=== PATIENT | male | born 1990 | race Caucasian/White ===

== ENCOUNTER 2016-09-25 20:03 | Emergency (ER) | payer OTHER ==
[2016-09-25 20:54] LABS: Bilirubin Negative (Negative); Blood, Urine Negative (Negative); Glucose, Urine (Dipstick) >=1000 mg/dL (Negative); Ketone, Urine Negative (Negative); Nitrite Negative (Negative); Protein, Urine (Dipstick) Negative (Neg-Trace); Urobilinogen 0.2 mg/dL (0.2-1.0)
[2016-09-25 21:03] LABS: #Basophils 0.2 thou/uL (0.0-0.2); #Eosinphils 0.2 thou/uL (0.0-0.7); #Lymphocytes 3.5 thou/uL (1.20-3.40); #Monocytes 0.8 thou/uL (0.11-0.59); #Neutrophils 6.2 thou/uL (1.40-6.50); %Basophils 1.6 % (0.0-1.0); %Eosinophils 1.9 % (0.0-10.0); Hematocrit 46.2 % (42.0-52.0); Mean Platelet Volume 9.1 fL (7.4-10.4); Red Blood Cell (RBC) Count 5.28 mill/uL (4.70-6.10); White Blood Cell (WBC) Count 10.8 thou/uL (4.8-10.8)
[2016-09-25 21:11] LABS: ALT (SGPT) 47 U/L (0-55); AST (SGOT) 23 U/L (5-34); Alkaline Phosphatase 79 U/L (40-150); Anion Gap 28 mmol/L (10-20); BUN (Urea Nitrogen) 16 mg/dL (8.9-20.6); Bilirubin, Total 0.5 mg/dL (0.2-1.2); Calc. Creatinine Clearance 0 mL/min (70-130); Calcium 9.7 mg/dL (7.8-10.44); Carbon Dioxide 10 mmol/L (22-29); Chloride 98 mmol/L (98-107); Estimated GFR-MDRD 84; Globulin 4.5 g/dL (2.4-3.5); Magnesium 2.7 mg/dL (1.6-2.6); Protein, Total 9.1 g/dL (6.0-8.3)
[2016-09-25 21:12] LABS: Base Excess 1.8 mEq/L (-2 - +2)
--- NOTE | 2016-09-25 23:59 | PICIS ---
[facility] EMERGENCY RECORD TRIAGE (20:10 SDIS) TRIAGE NOTES: PT C/O HIGH BLOOD SUGAR, "DRY MOUTH, UPSET STOMACH." LAST READING 318 AT HOME. DM2. (20:10 SDIS) PATIENT: NAME: Haim Boyle, AGE: 26, GENDER: male, : Sat1990, TIME OF GREET: SatSep 25, 2016 20:03, PREFERRED LANGUAGE: Sinhala, ETHNICITY: Not or , ECODE BILLING MAP: [facility], SSN: [id number], Zip Code: [address], KG WEIGHT: [phone] (est.), PHONE: , , , PERSON ID: [id number], PCP: DO AVERY KRISTEL. (20:10 SDIS) COMPLAINT: HYPERGLYCEMIA. (20:10 SDIS) ADMISSION: URGENCY: 3 Urgent, ADMISSION SOURCE: Home, TRANSPORT: Walk-in, BED: TRIAGE. (20:10 SDIS) SIRS SCORING: Heart Rate 55-109 (0), Temp range 96.8-101.1 (0), respiratory rate 12-24 (0), Mental Status altered: no (0). (20:12 SDIS) TRIAGE SCREENING: Patient denies suicidal ideation, Patient denies presence of domestic violence. (20:12 SDIS) TREATMENTS IN PROGRESS: Treatments given Prehospital: NONE. (20:12 SDIS) PROVIDERS: TRIAGE NURSE: Madyson Hadley RN. (20:10 SDIS) VITAL SIGNS: Resp 18, (Non-Labored), Time 09/25/2016 20:09. (20:09 SDIS) PREVIOUS VISIT ALLERGIES: No Known Drug Allergies. (20:10 SDIS) No Known Drug Allergies. (20:12 SDIS) KNOWN ALLERGIES No Known Drug Allergies CURRENT MEDICATIONS (20:49 SDIS) metFORMIN: TABLET : Strength - 500 mg : ORAL Patient Dose: 1 tab(s) Oral 2 times a day. traZODone: TABLET : Strength - 150 mg : ORAL Patient Dose: 1 tab(s) Oral once a day (at bedtime). VITAL SIGNS VITAL SIGNS: Resp: 18 (Non-Labored), Time: 09/25/2016 20:09. (20:09 SDIS) BP: 143/89, Pulse: 100, Temp: 97.8 (Oral), Pain: 4, O2 sat: 97 on Room Air, Time: 09/25/2016 20:11. (20:11 SDIS) BP: 120/77, Pulse: 87, Resp: 20, O2 sat: 98 on Room Air, Time: 09/25/2016 22:15. (22:15 SDIS) BP: 109/74, Pulse: 87, Resp: 18, O2 sat: 97 on Room Air, Time: 09/25/2016 21:30. (21:30 SDIS) BP: 121/79, Pulse: 80, Resp: 18, Temp: 97.5, Pain: 4, O2 sat: 97 on RA, Time: 09/25/2016 23:49. (23:49 SDIS) NURSING PROCEDURE: BEDSIDE TESTING &a-1R&a+25V*p+0X*n8199Z*c202B*c15G*c2P*p-0X&a-25V&a+1R Name: Haim Boyle : 1990 M26 MedRec: [id number] AcctNum: [id number] Prepared: Maged Sep 25, 2016 23:56 by Interface Page 1 of 11 [facility] EMERGENCY RECORD PATIENT IDENTIFIER: Patient actively involved in identification process, Patient's identity verified by patient stating name, Patient's identity verified by patient stating date, Patient's identity verified by hospital ID bracelet. (20:41 SDIS) Patient actively involved in identification process, Patient's identity verified by patient stating name. (22:01 SDIS) Patient actively involved in identification process, Patient's identity verified by patient stating name, Patient's identity verified by patient stating date, Patient's identity verified by hospital ID bracelet. (23:25 SDIS) GLUCOSE: Glucose testing indicated for diabetic patient, Glucose testing indicated for hyperglycemia, Venous blood sample, Result (mg/dl) 361. (20:41 SDIS) Glucose testing indicated for diabetic patient, Glucose testing indicated for hyperglycemia, Capillary blood sample, Result (mg/dl) 309. (22:01 SDIS) Glucose testing indicated for diabetic patient, Glucose testing indicated for hyperglycemia, Capillary blood sample, Result (mg/dl) 208. (23:25 SDIS) FOLLOW-UP: After procedure, results given to Dr. tellez. (20:41 SDIS) After procedure, results given to Dr. TELLEZ. (22:01 SDIS) After procedure, results given to Dr. TELLEZ. (23:25 SDIS) NURSING PROCEDURE: DISCHARGE NOTE (23:49 SDIS) DISCHARGE: Patient discharged to home, ambulating without assistance, family driving, accompanied by //partner, Summary of Care printed/ provided, Transition record given to patient, Discharge instructions given to patient, Simple or moderate discharge teaching performed, Prescriptions given and instructions on side effects given, Above person(s) verbalized understanding of discharge instructions and follow-up care, Patient treated and evaluated by physician. BELONGINGS: Belongings and valuables with patient at time of discharge include:, Belongings remain with patient, Valuables remain with patient. VITAL SIGNS: BP: 121, / 79, Pulse: 80, Resp: 18, Temp: 97.5, Pain: 4, O2 sat: 97, on: RA. NURSING PROCEDURE: IV (20:40 SDIS) PATIENT IDENITIFIER: Patient actively involved in identification process, Patient's identity verified by patient stating name, Patient's identity verified by patient stating date, Patient's identity verified by hospital ID bracelet. IV SITE 1: IV therapy indicated for hydration, IV therapy indicated for medication administration, IV established, to the right antecubital, using an 18 gauge catheter, in one attempt, IV site prepped with chloraprep, Saline lock established, Flushed with normal saline (mls): 10, Labs drawn at time of placement, labeled in the presence of the patient and sent to lab. &a-1R&a+25V*p+0X*y4932T*c202B*c15G*c2P*p-0X&a-25V&a+1R Name: Haim Boyle Casa : 1990 M26 MedRec: [id number] AcctNum: [id number] Prepared: SatSep 25, 2016 23:56 by Interface Page 2 of 11 pMD [facility] EMERGENCY RECORD NURSING PROCEDURE: URINE COLLECTION (20:42 SDIS) PATIENT IDENTIFIER: Patient actively involved in identification process, Patient's identity verified by patient stating name, Patient's identity verified by patient stating date, Patient's identity verified by hospital ID bracelet. URINE COLLECTION MALE: Urine collected by void, output amount (mL) 50, urine orange in color, and clear, Specimen labeled in the presence of the patient and sent to lab, Specimen obtained for culture labeled in the presence of the patient and sent to lab. ORDER DETAILS Order Name: Beta-Hydroxybutyrate (Ketone), Status: Active, Time: 22:15 09/25/2016, User: KEKE, - Ordered for: DO Tellez Joseph, - Entered by: DO Tellez Joseph - SatSep 25, 2016 22:15, - Quantity: 1, Order Name: BLOOD GLUCOSE MONITOR, Status: Done, Time: 22:01 09/25/2016, User: LIZA, - Ordered for: DO Tellez Joseph, - Entered by: DO Tellez Joseph - SatSep 25, 2016 21:36, - Quantity: 1, Order Name: CBC with Differential, Status: Active, Time: 20:15 09/25/2016, User: KEKE, - Ordered for: DO Tellez Joseph, - Entered by: DO Tellez Joseph - SatSep 25, 2016 20:15, - Quantity: 1, Order Name: Comprehensive Metabolic Panel, Status: Active, Time: 20:15 09/25/2016, User: KEKE, - Ordered for: DO Tellez Joseph, - Entered by: DO Tellez Joseph - SatSep 25, 2016 20:15, - Quantity: 1, Order Name: ERRT Pulse Oximeter ER, Status: Active, Time: 20:15 09/25/2016, User: KEKE, - Ordered for: DO Tellez Joseph, - Entered by: DO Tellez Joseph - SatSep 25, 2016 20:15, - Quantity: 1, Order Name: Influenza A&B Ag Screen, Status: Active, Time: 20:58 09/25/2016, User: KEKE, - Ordered for: DO Tellez Joseph, - Entered by: DO Tellez Joseph - SatSep 25, 2016 20:58, - Quantity: 1, Order Name: Magnesium, Status: Active, Time: 20:15 09/25/2016, User: KEKE, - Ordered for: DO Tellez Joseph, - Entered by: DO Tellez Joseph - estela Sep 25, 2016 20:15, - Quantity: 1, Order Name: SALINE LOCK, Status: Done, Time: 20:43 09/25/2016, User: LIZA, &a-1R&a+25V*p+0X*o9935Z*c202B*c15G*c2P*p-0X&a-25V&a+1R Name: Haim Boyle : 1990 M26 MedRec: [id number] AcctNum: [id number] Prepared: SatSep 25, 2016 23:56 by Interface Page 3 of 11 D [facility] EMERGENCY RECORD - Ordered for: DO Tellez Joseph, - Entered by: DO Tellez Joseph - estela Sep 25, 2016 20:15, - Quantity: 1, Order Name: Urinalysis w/ Rflx Microscopic, Status: Active, Time: 20:15 09/25/2016, User: KEKE, - Ordered for: DO Tellez Joseph, - Entered by: DO Tellez Joseph - estela Sep 25, 2016 20:15, - Quantity: 1, Order Name: VBG (For BUR,MAD, and FANY), Status: Active, Time: 20:23 09/25/2016, User: KEKE, - Ordered for: DO Tellez Joseph, - Entered by: DO Tellez Joseph - SatSep 25, 2016 20:23, - Quantity: 1. MEDICATION ADMINISTRATION SUMMARY Drug Name: HumuLIN R, Dose Ordered: 10 units, Route: IV Push, Status: Given, Time: 22:20 09/25/2016, Drug Name: Normal Saline, Dose Ordered: 1000 mL/hr, Route: IV Fluid Infusion, Status: Given, Time: 21:45 09/25/2016, Drug Name: Normal Saline, Dose Ordered: 1000 mL/hr, Route: IV Fluid Infusion, Status: Given, Time: 20:44 09/25/2016, Detailed record available in Medication Service section. MEDICATION SERVICE HumuLIN R: Order: HumuLIN R (insulin regular, human) - Dose: 10 units : IV Push Schedule: Now Ordered by: Jaycob Tellez DO Entered by: Jaycob Tellez DO SatSep 25, 2016 22:13 , Acknowledged by: Madyson Hadley RN SatSep 25, 2016 22:20 Documented as given by: Ira Fowler RN SatSep 25, 2016 22:20 Patient, Medication, Dose, Route and Time verified prior to administration. Verbal order read back and verified, Amount given: 10UNITS, IV SITE #1 IVP, initial medication, Catheter placement confirmed via flush prior to administration, IV site without signs or symptoms of infiltration during medication administration, No swelling during administration, No drainage during administration, IV flushed after administration, Correct patient, time, route, dose and medication confirmed prior to administration, Patient advised of actions and side-effects prior to administration, Allergies confirmed and medications reviewed prior to administration, Patient in position of comfort, Side rails up, Cart in lowest position, Family at bedside, Co-signed by: Madyson Hadley RN SatSep 25, 2016 22:26. Normal Saline: Order: Normal Saline (0.9 % sodium chloride) - Dose: 1000 mL/hr : IV Fluid Infusion Schedule: Bolus Ordered by: Jaycob Tellez DO &a-1R&a+25V*p+0X*l5242G*c202B*c15G*c2P*p-0X&a-25V&a+1R Name: Haim Boyle : 1990 M26 MedRec: [id number] AcctNum: [id number] Prepared: SatSep 25, 2016 23:56 by Interface Page 4 of 11 pMD [facility] EMERGENCY RECORD Entered by: Jaycob Tellez DO SatSep 25, 2016 20:24 , Acknowledged by: Madyson Hadley RN SatSep 25, 2016 20:31 Documented as given by: Madyson Hadley RN SatSep 25, 2016 20:44 Patient, Medication, Dose, Route and Time verified prior to administration. IV SITE #1 IV fluids established for hydration, IV SITE #1 into right antecubital, IV SITE #1 1st bag hung, amount 1 Liter hung, IV SITE #1 bolus of 1000 ml established, IV SITE #1 Rate of bolus, wide open, via primary tubing, Connections checked prior to administration, Line traced prior to administration, Catheter placement confirmed via flush prior to administration, IV site without signs or symptoms of infiltration during medication administration, No swelling during administration, No drainage during administration, IV flushed after administration, Correct patient, time, route, dose and medication confirmed prior to administration, Patient advised of actions and side-effects prior to administration, Allergies confirmed and medications reviewed prior to administration. : Follow Up : _IV SITE #1:_, IV fluid infusion discontinued, on SatSep 25, 2016 21:35, 55 minutes, ., Total amount infused: 1L. (21:35 SDIS) Normal Saline: Order: Normal Saline (0.9 % sodium chloride) - Dose: 1000 mL/hr : IV Fluid Infusion Schedule: Now Ordered by: Jaycob Tellez DO Entered by: Jaycob Tellez DO SatSep 25, 2016 21:24 , Acknowledged by: Madyson Hadley RN SatSep 25, 2016 21:30 Documented as given by: Madyson Hadley RN SatSep 25, 2016 21:45 Patient, Medication, Dose, Route and Time verified prior to administration. IV SITE #1 IV fluids established for hydration, IV SITE #1 into right antecubital, IV SITE #1 2nd bag hung, amount 1 Liter hung, IV SITE #1 bolus of 1000 ml established, IV SITE #1 Rate of bolus, wide open, via primary tubing, Connections checked prior to administration, Line traced prior to administration, Catheter placement confirmed via flush prior to administration, IV site without signs or symptoms of infiltration during medication administration, No swelling during administration, No drainage during administration, IV flushed after administration, Correct patient, time, route, dose and medication confirmed prior to administration, Patient advised of actions and side-effects prior to administration, Allergies confirmed and medications reviewed prior to administration. : Follow Up : No signs or symptoms of allergic reaction noted, _IV SITE #1:_, IV fluid infusion discontinued, on SatSep 25, 2016 22:49, Total fluid hydration time IV site 1 1 hour, 5 minutes, ., Total amount infused: 1L, IV Discontinued with catheter intact. (23:49 SDIS) HPI DIABETES (22:26 JPIP) CHIEF COMPLAINT: Patient presents for evaluation of hyperglycemia, Pre-hospital or triage blood sugar &a-1R&a+25V*p+0X*i4027D*c202B*c15G*c2P*p-0X&a-25V&a+1R Name: Haim Boyle : 1990 M26 MedRec: [id number] AcctNum: [id number] Prepared: SatSep 25, 2016 23:56 by Interface Page 5 of 11 pMD [facility] EMERGENCY RECORD 300-400. HISTORIAN: History provided by patient, History provided by patient's spouse. QUALITY: stomach upset and cramping. SEVERITY: Current severity of pain rated as 4/10. TIME COURSE: Sudden onset of symptoms, Date and time of onset was 2-3, days ago, There has been no change in the patient's symptoms over time, are constant. ASSOCIATED WITH: Associated with abdominal pain, Associated with decreased oral intake, Associated with diaphoresis, Associated with fever, subjective, Associated with illness, Associated with polydipsia, diarrhea. EXACERBATED BY: Patient's condition exacerbated by nothing. RELIEVED BY: Patient's condition relieved by nothing. ROS (22:28 JPIP) CONSTITUTIONAL: Historian reports chills, reports fatigue, reports fever. Subjective fever of felt feverish, Historian reports malaise. ENT: Historian denies dysphagia, denies rhinorrhea, denies sinus pain, denies sore throat. CARDIOVASCULAR: Historian denies chest pain. RESPIRATORY: Historian denies cough, denies shortness of breath. GI: Historian reports diarrhea, reports nausea, denies vomiting. SKIN: Historian denies rash, denies skin changes, denies skin lesions. NEUROLOGIC: Historian denies lethargy, denies mental status changes. ENDOCRINE: Historian reports polydipsia. NOTES: All systems reviewed, negative except as described above. PAST MEDICAL HISTORY MEDICAL HISTORY: Flu vaccine not up to date, Tetanus immunization up to date, Pneumococcal vaccine not up to date, Past medical history includes history of diabetes, Type II, Notes: new onset diabetes. (20:12 SDIS) MALE SURGICAL HISTORY: Patient has no surgical history. (20:12 SDIS) PSYCHIATRIC HISTORY: Notes: ADHD, Psychiatric history includes history of post-traumatic stress disorder, Notes: adhd. (20:12 SDIS) SOCIAL HISTORY: Patient drinks socially, rarely, Patient denies drug use, Patient currently uses tobacco, E-CIG, Patient denies alcohol use, Patient denies drug use, Patient currently uses tobacco, smokes cigarettes, Occasional or some day smoker, 1 cig a month. (20:12 SDIS) FAMILY HISTORY: Family history is non-contributory to this case. (20:12 SDIS) NOTES: Nursing records reviewed, Medication list reviewed. (22:31 &a-1R&a+25V*p+0X*c5548I*c202B*c15G*c2P*p-0X&a-25V&a+1R Name: Haim Boyle : 1990 M26 MedRec: [id number] AcctNum: [id number] Prepared: SatSep 25, 2016 23:56 by Interface Page 6 of 11 D [facility] EMERGENCY RECORD JPIP) PHYSICAL EXAM (22:30 JPIP) CONSTITUTIONAL: Vital Signs Reviewed, Patient afebrile, Pulse normal, Blood pressure normal bilaterally, Respiratory rate normal, Patient appears, uncomfortable, ill appearing, Patient alert and oriented to person, place and time, Nursing notes reviewed. HEAD: Head exam included findings of head atraumatic, normocephalic. EYES: Eye exam included findings of eyelids normal to inspection, Conjunctiva normal, Sclera normal, no periorbital ecchymosis, no periorbital edema, no periorbital erythema. ENT: Ear exam normal, Pharynx exam normal, not injected, no swelling, symmetrical, Uvula exam normal, midline, no edema, Mouth exam normal, mucous membranes moist. NECK: Neck exam included findings of normal range of motion, Trachea midline, no cervical adenopathy. RESPIRATORY CHEST: Respiratory exam included findings of no respiratory distress, Breath sounds clear, No wheezing, No rales, No rhonchi, Breath sounds not absent, Breath sounds not diminished. CARDIOVASCULAR: Cardiovascular exam included findings of heart rate regular rate and rhythm, Heart sounds normal, no murmurs, no rub. BACK: no costovertebral angle tenderness. UPPER EXTREMITY: Upper extremity exam included findings of inspection normal, Range of motion normal. NEURO: Randy coma scale 15, Neuro exam findings include patient oriented to person, place and time, no focal motor deficits. SKIN: Skin exam included findings of skin warm, and, diaphoretic, and normal in color. LYMPHATIC: Lymphatic exam included findings of cervical nodes normal, Submandibular normal. PSYCHIATRIC: Psychiatric exam included findings of patient oriented to person place and time, Normal affect. LAB INTERPRETATION (22:38 JPIP) INTERPRETATION: I reviewed the lab results, All labs normal except as noted below, CBC normal, Chemistry abnormal, Sodium decreased, Glucose elevated, Bicarbonate decreased, Magnesium elevated, Liver functions normal, Urinalysis abnormal, positive for glucose, Bedside glucose abnormal, elevated, VBG 7.420, CO241. EVENTS TRANSFER: Triage to Emergency Triage. (SatSep 25, 2016 20:10 SDIS) Emergency Triage to Emergency Room -02. (20:11 SDIS) Removed from Emergency Emergency Room -02. (23:50 SDIS) &a-1R&a+25V*p+0X*z4389O*c202B*c15G*c2P*p-0X&a-25V&a+1R Name: Haim Boyle : 1990 M26 MedRec: [id number] AcctNum: [id number] Prepared: SatSep 25, 2016 23:56 by Interface Page 7 of 11 pMD [facility] EMERGENCY RECORD O2SAT INTERPRETATION (22:26 JPIP) O2SAT: Continuous pulse oximetry, Oxygen saturation 98%, on room air, Oxygen saturation interpretation: Normal, No intervention required. DOCTOR NOTES (22:40 JPIP) RE-EVALUATION: Routine re-evaluation, after administration of IV fluids, The patient's condition has improved, states he is feeling better. TEXT: discussed findings and treatment plan with patient precautions given. PROBLEM LIST No recorded problems DIAGNOSIS (23:33 JPIP) FINAL: PRIMARY: viral syndrome, ADDITIONAL: diarrhea, nonketotic hyperglycemia. DISPOSITION PATIENT: Disposition Type: Discharge, Disposition: *Discharge Home, Condition: Good. (23:33 JPIP) Patient left the department. (23:50 SDIS) INSTRUCTION (23:33 JPIP) DISCHARGE: DIARRHEA VOMIT VIRAL 4YADULT, HYPERGLYCEMIA DIABETIC. FOLLOWUP: DO AVERY KRISTEL, [facility], [address] [place] [id number], [id number]. SPECIAL: follow your diabetic diet. Call your Primary Care Physician in the morning for a follow up appointment Follow up with Primary Care Physician within 72 hours Return to the Emergency Department for increased symptoms problems or concerns. PRESCRIPTION (23:32 JPIP) Levsin/SL: TABLET, SUBLINGUAL : 0.125 mg : SUBLINGUAL : Quantity: 1 Unit: tab(s) Route: SUBLINGUAL Schedule: every 4 hours prn Dispense: 30 May substitute. Refills: No Refills . NOTES: For abdominal pain, cramps or diarrhea No refills. RESULTS LABORATORY: Accuchek Collection DT: SatSep 25, 2016 20:49, *Accuchek 361 - H mg/dL, Range (70-110). (20:55 JPIP) CBC with Differential Collection DT: SatSep 25, 2016 20:44, White Blood Cell (WBC) Count 10.8 thou/uL, Range (4.8-10.8), Red Blood Cell (RBC) Count 5.28 mill/uL, Range (4.70-6.10), &a-1R&a+25V*p+0X*p8705C*c202B*c15G*c2P*p-0X&a-25V&a+1R Name: Haim Boyle Casa : 1990 M26 MedRec: [id number] AcctNum: [id number] Prepared: SatSep 25, 2016 23:56 by Interface Page 8 of 11 pMD [facility] EMERGENCY RECORD Hemoglobin 16.4 g/dL, Range (14.0-18.0), Hematocrit 46.2 %, Range (42.0-52.0), Mean Corpuscular Volume 87.5 fl, Range (80.0-94.0), *Mean Corpuscular Hemoglobin 31.1 - H pg, Range (27.0-31.0), Mean Corpuscular HGB CONC 35.6 g/dL, Range (32.0-36.0), *RBC Distribution Width 11.4 - L %, Range (11.5-14.5), Platelet Count 252 thou/uL, Range (130-400), Mean Platelet Volume 9.1 fL, Range (7.4-10.4), %Neutrophils 57.2 %, Range (42.0-75.0), %Lymphocytes 32.4 %, Range (21.0-51.0), %Monocytes 7.0 %, Range (0.0-10.0), %Eosinophils 1.9 %, Range (0.0-10.0), *%Basophils 1.6 - H %, Range (0.0-1.0), #Neutrophils 6.2 thou/uL, Range (1.40-6.50), *#Lymphocytes 3.5 - H thou/uL, Range (1.20-3.40), *#Monocytes 0.8 - H thou/uL, Range (0.11-0.59), #Eosinphils 0.2 thou/uL, Range (0.0-0.7), #Basophils 0.2 thou/uL, Range (0.0-0.2). (21:05 [facility]) Urinalysis w/ Rflx Microscopic Collection DT: SatSep 25, 2016 20:50, Color Yellow , Range (Yellow), Clarity Clear , Range (Clear), Specific [place], Urine 1.020 , Range (1.005-1.030), pH, Urine 5.5 , Range (5.0-9.0), Leukocyte Negative , Range (Negative), Nitrite Negative , Range (Negative), Protein, Urine (Dipstick) Negative mg/dL, Range (Neg-Trace), *Glucose, Urine (Dipstick) >=1000 - H mg/dL, Range (Negative), Ketone, Urine Negative mg/dL, Range (Negative), Urobilinogen 0.2 mg/dL, Range (0.2-1.0), Bilirubin Negative , Range (Negative), Blood, Urine Negative , Range (Negative). (21:05 [facility]) Blood Gas-Venous Collection DT: SatSep 25, 2016 20:44, *pH (venous) 7.420 - H , Range (7.34-7.37), *CO2 Tension (PvCO2) 41.0 - L mmHg, Range (44-46), *O2 Tension (PvO2) 73.0 - H mmHg, Range (38-42), Actual Bicarbonate (HCO3v) 26 mEq/L, Range (24-30), Base Excess 1.8 mEq/L, Range (-2 - +2), *O2 Saturation-measured venous 95.0 - H %, Range (60-80), Hemoglobin (Hb) 15.1 g/dL, Range (13.2-17.3). (21:16 JP) Magnesium Collection DT: SatSep 25, 2016 20:44, *Magnesium 2.7 - H mg/dL, Range (1.6-2.6). (21:16 JPIP) Comprehensive Metabolic Panel Collection DT: SatSep 25, 2016 20:44, *Sodium 132 - L mmol/L, Range (136-145), Potassium 4.1 mmol/L, Range (3.5-5.1), Chloride 98 mmol/L, Range (98-107), *Carbon Dioxide 10 - L mmol/L, Range (22-29), *Anion Gap 28 - H mmol/L, Range (10-20), BUN (Urea Nitrogen) 16 mg/dL, Range (8.9-20.6), Creatinine 1.05 mg/dL, Range (0.7-1.3), &a-1R&a+25V*p+0X*t4495L*c202B*c15G*c2P*p-0X&a-25V&a+1R Name: Haim Boyle : 1990 M26 MedRec: [id number] AcctNum: [id number] Prepared: SatSep 25, 2016 23:56 by Interface Page 9 of 11 pMD [facility] EMERGENCY RECORD Estimated GFR-MDRD 84 , Reference Range for Estimated GFR: Greater than 90, mL/min/1.73 m2 NOTE: The MDRD equation has not been validated for use, with the elderly (over 70 years of age), women, patients with, serious comorbid condition or persons with extremes of body size, muscle, mass, or nutritional status. , *Glucose 375 - H mg/dL, Range (70-105), Calcium 9.7 mg/dL, Range (7.8-10.44), Bilirubin, Total 0.5 mg/dL, Range (0.2-1.2), *Protein, Total 9.1 - H g/dL, Range (6.0-8.3), NOTE: Plasma values are generally 0.3 to 0.5 g/dL higher than serum values, due to the presence of fibrinogen. , Albumin 4.6 g/dL, Range (3.5-5.0), *Globulin 4.5 - H g/dL, Range (2.4-3.5), *Alb/Glob Ratio 1.0 - L g/dL, Range (1.2-2.2), Alkaline Phosphatase 79 U/L, Range (40-150), AST (SGOT) 23 U/L, Range (5-34), ALT (SGPT) 47 U/L, Range (0-55). (21:16 [facility]) MICROBIOLOGY: Influenza A&B Ag Screen: [id number] Collection DT: SatSep 25, 2016 22:14, See comment below , @ ER ROOM#: [id number] Source: Nasal swab Spec Desc: , Influenza A Antigen: NEGATIVE for the , presence of , INFLUENZA A Antigen , Influenza B Antigen: NEGATIVE for the , presence of , INFLUENZA B Antigen , The rapid Flu A&B test can distinguish between influenza A , Influenza A&B Ag Screen See comment below , and B viruses, but it does not differentiate influenza , Influenza A&B Ag Screen See comment below , subtypes. , Influenza A&B Ag Screen See comment below , Influenza A&B Ag Screen See comment below , Influenza A&B Ag Screen See comment below , Influenza A&B Ag Screen See comment below , characteristics of this device with human specimens infected , Influenza A&B Ag Screen See comment below , with the 2008 H1N1 influenza virus have not been , Influenza A&B Ag Screen See comment below , established. For example: this test cannot distinguish , Influenza A&B Ag Screen See comment below , influenza infections caused by novel H1N1 influenza A , Influenza A&B Ag Screen See comment below , viruses versus seasonal influenza A viruses. , Influenza A&B Ag Screen See comment below , , Influenza A&B Ag Screen See comment below , A negative result does &a-1R&a+25V*p+0X*s8906G*c202B*c15G*c2P*p-0X&a-25V&a+1R Name: Haim Boyle : 1990 M26 MedRec: [id number] AcctNum: [id number] Prepared: SatSep 25, 2016 23:56 by Interface Page 10 of 11 pMD [facility] EM[facility]GENCY RECORD not exclude influenza virus , Influenza A&B Ag Screen See comment below , infection; therefore, if more conclusive testing is desired, , Influenza A&B Ag Screen See comment below , follow up confirmatory testing is warranted., Influenza A&B Ag Screen See comment below . (22:43 JPIP) LABORATORY: [facility] DT: SatSep 25, 2016 22:07, *[facility] - H mg/dL, Range (70-110). (22:43 JPIP) [facility] DT: SatSep 25, 2016 23:40, *[facility] - H mg/dL, Range (70-110). (23:47 JPIP) Coleman: KEKE=DO Tellez Joseph SDIS=SERGIO Hadley, Madyson &a-1R&a+25V*p+0X*h3572A*c202B*c15G*c2P*p-0X&a-25V&a+1R Name: Haim Boyle : 1990 M26 MedRec: [id number] AcctNum: [id number] Prepared: SatSep 25, 2016 23:56 by Interface Page 11 of 11 pMD MTDD
--- NOTE | 2016-09-26 00:01 | PICIS ---
[facility] EMERGENCY RECORD TRIAGE (20:10 SDIS) TRIAGE NOTES: PT C/O HIGH BLOOD SUGAR, "DRY MOUTH, UPSET STOMACH." LAST READING 318 AT HOME. DM2. (20:10 SDIS) PATIENT: NAME: Haim Boyle, AGE: 26, GENDER: male, : Sat1990, TIME OF GREET: SatSep 25, 2016 20:03, PREFERRED LANGUAGE: Arabic, ETHNICITY: Not or , ECODE BILLING MAP: [facility], SSN: [id number], Zip Code: [address], KG WEIGHT: [phone] (est.), PHONE: , , , PERSON ID: [id number], PCP: DO AVERY KRISTEL. (20:10 SDIS) COMPLAINT: HYPERGLYCEMIA. (20:10 SDIS) ADMISSION: URGENCY: 3 Urgent, ADMISSION SOURCE: Home, TRANSPORT: Walk-in, BED: TRIAGE. (20:10 SDIS) SIRS SCORING: Heart Rate 55-109 (0), Temp range 96.8-101.1 (0), respiratory rate 12-24 (0), Mental Status altered: no (0). (20:12 SDIS) TRIAGE SCREENING: Patient denies suicidal ideation, Patient denies presence of domestic violence. (20:12 SDIS) TREATMENTS IN PROGRESS: Treatments given Prehospital: NONE. (20:12 SDIS) PROVIDERS: TRIAGE NURSE: Madyson Hadley RN. (20:10 SDIS) VITAL SIGNS: Resp 18, (Non-Labored), Time 09/25/2016 20:09. (20:09 SDIS) PREVIOUS VISIT ALLERGIES: No Known Drug Allergies. (20:10 SDIS) No Known Drug Allergies. (20:12 SDIS) KNOWN ALLERGIES No Known Drug Allergies CURRENT MEDICATIONS (20:49 SDIS) metFORMIN: TABLET : Strength - 500 mg : ORAL Patient Dose: 1 tab(s) Oral 2 times a day. traZODone: TABLET : Strength - 150 mg : ORAL Patient Dose: 1 tab(s) Oral once a day (at bedtime). VITAL SIGNS VITAL SIGNS: Resp: 18 (Non-Labored), Time: 09/25/2016 20:09. (20:09 SDIS) BP: 143/89, Pulse: 100, Temp: 97.8 (Oral), Pain: 4, O2 sat: 97 on Room Air, Time: 09/25/2016 20:11. (20:11 SDIS) BP: 120/77, Pulse: 87, Resp: 20, O2 sat: 98 on Room Air, Time: 09/25/2016 22:15. (22:15 SDIS) BP: 109/74, Pulse: 87, Resp: 18, O2 sat: 97 on Room Air, Time: 09/25/2016 21:30. (21:30 SDIS) BP: 121/79, Pulse: 80, Resp: 18, Temp: 97.5, Pain: 4, O2 sat: 97 on RA, Time: 09/25/2016 23:49. (23:49 SDIS) NURSING PROCEDURE: BEDSIDE TESTING &a-1R&a+25V*p+0X*s8317D*c202B*c15G*c2P*p-0X&a-25V&a+1R Name: Haim Boyle : 1990 M26 MedRec: [id number] AcctNum: [id number] Prepared: Maged Sep 25, 2016 23:56 by Interface Page 1 of 11 [facility] EMERGENCY RECORD PATIENT IDENTIFIER: Patient actively involved in identification process, Patient's identity verified by patient stating name, Patient's identity verified by patient stating date, Patient's identity verified by hospital ID bracelet. (20:41 SDIS) Patient actively involved in identification process, Patient's identity verified by patient stating name. (22:01 SDIS) Patient actively involved in identification process, Patient's identity verified by patient stating name, Patient's identity verified by patient stating date, Patient's identity verified by hospital ID bracelet. (23:25 SDIS) GLUCOSE: Glucose testing indicated for diabetic patient, Glucose testing indicated for hyperglycemia, Venous blood sample, Result (mg/dl) 361. (20:41 SDIS) Glucose testing indicated for diabetic patient, Glucose testing indicated for hyperglycemia, Capillary blood sample, Result (mg/dl) 309. (22:01 SDIS) Glucose testing indicated for diabetic patient, Glucose testing indicated for hyperglycemia, Capillary blood sample, Result (mg/dl) 208. (23:25 SDIS) FOLLOW-UP: After procedure, results given to Dr. tellez. (20:41 SDIS) After procedure, results given to Dr. TELLEZ. (22:01 SDIS) After procedure, results given to Dr. TELLEZ. (23:25 SDIS) NURSING PROCEDURE: DISCHARGE NOTE (23:49 SDIS) DISCHARGE: Patient discharged to home, ambulating without assistance, family driving, accompanied by //partner, Summary of Care printed/ provided, Transition record given to patient, Discharge instructions given to patient, Simple or moderate discharge teaching performed, Prescriptions given and instructions on side effects given, Above person(s) verbalized understanding of discharge instructions and follow-up care, Patient treated and evaluated by physician. BELONGINGS: Belongings and valuables with patient at time of discharge include:, Belongings remain with patient, Valuables remain with patient. VITAL SIGNS: BP: 121, / 79, Pulse: 80, Resp: 18, Temp: 97.5, Pain: 4, O2 sat: 97, on: RA. NURSING PROCEDURE: IV (20:40 SDIS) PATIENT IDENITIFIER: Patient actively involved in identification process, Patient's identity verified by patient stating name, Patient's identity verified by patient stating date, Patient's identity verified by hospital ID bracelet. IV SITE 1: IV therapy indicated for hydration, IV therapy indicated for medication administration, IV established, to the right antecubital, using an 18 gauge catheter, in one attempt, IV site prepped with chloraprep, Saline lock established, Flushed with normal saline (mls): 10, Labs drawn at time of placement, labeled in the presence of the patient and sent to lab. &a-1R&a+25V*p+0X*j5557W*c202B*c15G*c2P*p-0X&a-25V&a+1R Name: Haim Boyle Casa : 1990 M26 MedRec: [id number] AcctNum: [id number] Prepared: SatSep 25, 2016 23:56 by Interface Page 2 of 11 pMD [facility] EMERGENCY RECORD NURSING PROCEDURE: URINE COLLECTION (20:42 SDIS) PATIENT IDENTIFIER: Patient actively involved in identification process, Patient's identity verified by patient stating name, Patient's identity verified by patient stating date, Patient's identity verified by hospital ID bracelet. URINE COLLECTION MALE: Urine collected by void, output amount (mL) 50, urine orange in color, and clear, Specimen labeled in the presence of the patient and sent to lab, Specimen obtained for culture labeled in the presence of the patient and sent to lab. ORDER DETAILS Order Name: Beta-Hydroxybutyrate (Ketone), Status: Active, Time: 22:15 09/25/2016, User: KEKE, - Ordered for: DO Tellez Joseph, - Entered by: DO Tellez Joseph - SatSep 25, 2016 22:15, - Quantity: 1, Order Name: BLOOD GLUCOSE MONITOR, Status: Done, Time: 22:01 09/25/2016, User: LIZA, - Ordered for: DO Tellez Joseph, - Entered by: DO Tellez Joseph - SatSep 25, 2016 21:36, - Quantity: 1, Order Name: CBC with Differential, Status: Active, Time: 20:15 09/25/2016, User: KEKE, - Ordered for: DO Tellez Joseph, - Entered by: DO Tellez Joseph - SatSep 25, 2016 20:15, - Quantity: 1, Order Name: Comprehensive Metabolic Panel, Status: Active, Time: 20:15 09/25/2016, User: KEKE, - Ordered for: DO Tellez Joseph, - Entered by: DO Tellez Joseph - SatSep 25, 2016 20:15, - Quantity: 1, Order Name: ERRT Pulse Oximeter ER, Status: Active, Time: 20:15 09/25/2016, User: KEKE, - Ordered for: DO Tellez Joseph, - Entered by: DO Tellez Joseph - SatSep 25, 2016 20:15, - Quantity: 1, Order Name: Influenza A&B Ag Screen, Status: Active, Time: 20:58 09/25/2016, User: KEKE, - Ordered for: DO Tellez Joseph, - Entered by: DO Tellez Joseph - SatSep 25, 2016 20:58, - Quantity: 1, Order Name: Magnesium, Status: Active, Time: 20:15 09/25/2016, User: KEKE, - Ordered for: DO Tellez Joseph, - Entered by: DO Tellez Joseph - estela Sep 25, 2016 20:15, - Quantity: 1, Order Name: SALINE LOCK, Status: Done, Time: 20:43 09/25/2016, User: LIZA, &a-1R&a+25V*p+0X*p4347T*c202B*c15G*c2P*p-0X&a-25V&a+1R Name: Haim Boyle : 1990 M26 MedRec: [id number] AcctNum: [id number] Prepared: SatSep 25, 2016 23:56 by Interface Page 3 of 11 [facility] EMERGENCY RECORD - Ordered for: DO Tellez Joseph, - Entered by: DO Tellez Joseph - estela Sep 25, 2016 20:15, - Quantity: 1, Order Name: Urinalysis w/ Rflx Microscopic, Status: Active, Time: 20:15 09/25/2016, User: KEKE, - Ordered for: DO Tellez Joseph, - Entered by: DO Tellez Joseph - estela Sep 25, 2016 20:15, - Quantity: 1, Order Name: VBG (For BUR,MAD, and FANY), Status: Active, Time: 20:23 09/25/2016, User: KEKE, - Ordered for: DO Tellez Joseph, - Entered by: DO Tellez Joseph - SatSep 25, 2016 20:23, - Quantity: 1. MEDICATION ADMINISTRATION SUMMARY Drug Name: HumuLIN R, Dose Ordered: 10 units, Route: IV Push, Status: Given, Time: 22:20 09/25/2016, Drug Name: Normal Saline, Dose Ordered: 1000 mL/hr, Route: IV Fluid Infusion, Status: Given, Time: 21:45 09/25/2016, Drug Name: Normal Saline, Dose Ordered: 1000 mL/hr, Route: IV Fluid Infusion, Status: Given, Time: 20:44 09/25/2016, Detailed record available in Medication Service section. MEDICATION SERVICE HumuLIN R: Order: HumuLIN R (insulin regular, human) - Dose: 10 units : IV Push Schedule: Now Ordered by: Jaycob Tellez DO Entered by: Jaycob Tellez DO SatSep 25, 2016 22:13 , Acknowledged by: Madyson Hadley RN SatSep 25, 2016 22:20 Documented as given by: Ira Fowler RN SatSep 25, 2016 22:20 Patient, Medication, Dose, Route and Time verified prior to administration. Verbal order read back and verified, Amount given: 10UNITS, IV SITE #1 IVP, initial medication, Catheter placement confirmed via flush prior to administration, IV site without signs or symptoms of infiltration during medication administration, No swelling during administration, No drainage during administration, IV flushed after administration, Correct patient, time, route, dose and medication confirmed prior to administration, Patient advised of actions and side-effects prior to administration, Allergies confirmed and medications reviewed prior to administration, Patient in position of comfort, Side rails up, Cart in lowest position, Family at bedside, Co-signed by: Madyson Hadley RN SatSep 25, 2016 22:26. Normal Saline: Order: Normal Saline (0.9 % sodium chloride) - Dose: 1000 mL/hr : IV Fluid Infusion Schedule: Bolus Ordered by: Jaycob Tellez DO &a-1R&a+25V*p+0X*m3274T*c202B*c15G*c2P*p-0X&a-25V&a+1R Name: Haim Boyle : 1990 M26 MedRec: [id number] AcctNum: [id number] Prepared: SatSep 25, 2016 23:56 by Interface Page 4 of 11 pMD [facility] EMERGENCY RECORD Entered by: Jaycob Tellez DO SatSep 25, 2016 20:24 , Acknowledged by: Madyson Hadley RN SatSep 25, 2016 20:31 Documented as given by: Madyson Hadley RN SatSep 25, 2016 20:44 Patient, Medication, Dose, Route and Time verified prior to administration. IV SITE #1 IV fluids established for hydration, IV SITE #1 into right antecubital, IV SITE #1 1st bag hung, amount 1 Liter hung, IV SITE #1 bolus of 1000 ml established, IV SITE #1 Rate of bolus, wide open, via primary tubing, Connections checked prior to administration, Line traced prior to administration, Catheter placement confirmed via flush prior to administration, IV site without signs or symptoms of infiltration during medication administration, No swelling during administration, No drainage during administration, IV flushed after administration, Correct patient, time, route, dose and medication confirmed prior to administration, Patient advised of actions and side-effects prior to administration, Allergies confirmed and medications reviewed prior to administration. : Follow Up : _IV SITE #1:_, IV fluid infusion discontinued, on SatSep 25, 2016 21:35, 55 minutes, ., Total amount infused: 1L. (21:35 SDIS) Normal Saline: Order: Normal Saline (0.9 % sodium chloride) - Dose: 1000 mL/hr : IV Fluid Infusion Schedule: Now Ordered by: Jaycob Tellez DO Entered by: Jaycob Tellez DO SatSep 25, 2016 21:24 , Acknowledged by: Madyson Hadley RN SatSep 25, 2016 21:30 Documented as given by: Madyson Hadley RN SatSep 25, 2016 21:45 Patient, Medication, Dose, Route and Time verified prior to administration. IV SITE #1 IV fluids established for hydration, IV SITE #1 into right antecubital, IV SITE #1 2nd bag hung, amount 1 Liter hung, IV SITE #1 bolus of 1000 ml established, IV SITE #1 Rate of bolus, wide open, via primary tubing, Connections checked prior to administration, Line traced prior to administration, Catheter placement confirmed via flush prior to administration, IV site without signs or symptoms of infiltration during medication administration, No swelling during administration, No drainage during administration, IV flushed after administration, Correct patient, time, route, dose and medication confirmed prior to administration, Patient advised of actions and side-effects prior to administration, Allergies confirmed and medications reviewed prior to administration. : Follow Up : No signs or symptoms of allergic reaction noted, _IV SITE #1:_, IV fluid infusion discontinued, on SatSep 25, 2016 22:49, Total fluid hydration time IV site 1 1 hour, 5 minutes, ., Total amount infused: 1L, IV Discontinued with catheter intact. (23:49 SDIS) HPI DIABETES (22:26 JPIP) CHIEF COMPLAINT: Patient presents for evaluation of hyperglycemia, Pre-hospital or triage blood sugar &a-1R&a+25V*p+0X*m3596Y*c202B*c15G*c2P*p-0X&a-25V&a+1R Name: Haim Boyle : 1990 M26 MedRec: [id number] AcctNum: [id number] Prepared: SatSep 25, 2016 23:56 by Interface Page 5 of 11 p[facility] EMERGENCY RECORD 300-400. HISTORIAN: History provided by patient, History provided by patient's spouse. QUALITY: stomach upset and cramping. SEVERITY: Current severity of pain rated as 4/10. TIME COURSE: Sudden onset of symptoms, Date and time of onset was 2-3, days ago, There has been no change in the patient's symptoms over time, are constant. ASSOCIATED WITH: Associated with abdominal pain, Associated with decreased oral intake, Associated with diaphoresis, Associated with fever, subjective, Associated with illness, Associated with polydipsia, diarrhea. EXACERBATED BY: Patient's condition exacerbated by nothing. RELIEVED BY: Patient's condition relieved by nothing. ROS (22:28 JPIP) CONSTITUTIONAL: Historian reports chills, reports fatigue, reports fever. Subjective fever of felt feverish, Historian reports malaise. ENT: Historian denies dysphagia, denies rhinorrhea, denies sinus pain, denies sore throat. CARDIOVASCULAR: Historian denies chest pain. RESPIRATORY: Historian denies cough, denies shortness of breath. GI: Historian reports diarrhea, reports nausea, denies vomiting. SKIN: Historian denies rash, denies skin changes, denies skin lesions. NEUROLOGIC: Historian denies lethargy, denies mental status changes. ENDOCRINE: Historian reports polydipsia. NOTES: All systems reviewed, negative except as described above. PAST MEDICAL HISTORY MEDICAL HISTORY: Flu vaccine not up to date, Tetanus immunization up to date, Pneumococcal vaccine not up to date, Past medical history includes history of diabetes, Type II, Notes: new onset diabetes. (20:12 SDIS) MALE SURGICAL HISTORY: Patient has no surgical history. (20:12 SDIS) PSYCHIATRIC HISTORY: Notes: ADHD, Psychiatric history includes history of post-traumatic stress disorder, Notes: adhd. (20:12 SDIS) SOCIAL HISTORY: Patient drinks socially, rarely, Patient denies drug use, Patient currently uses tobacco, E-CIG, Patient denies alcohol use, Patient denies drug use, Patient currently uses tobacco, smokes cigarettes, Occasional or some day smoker, 1 cig a month. (20:12 SDIS) FAMILY HISTORY: Family history is non-contributory to this case. (20:12 SDIS) NOTES: Nursing records reviewed, Medication list reviewed. (22:31 &a-1R&a+25V*p+0X*v7263V*c202B*c15G*c2P*p-0X&a-25V&a+1R Name: Haim Boyle : 1990 M26 MedRec: [id number] AcctNum: [id number] Prepared: SatSep 25, 2016 23:56 by Interface Page 6 of 11 [facility] EMERGENCY RECORD JPIP) PHYSICAL EXAM (22:30 JPIP) CONSTITUTIONAL: Vital Signs Reviewed, Patient afebrile, Pulse normal, Blood pressure normal bilaterally, Respiratory rate normal, Patient appears, uncomfortable, ill appearing, Patient alert and oriented to person, place and time, Nursing notes reviewed. HEAD: Head exam included findings of head atraumatic, normocephalic. EYES: Eye exam included findings of eyelids normal to inspection, Conjunctiva normal, Sclera normal, no periorbital ecchymosis, no periorbital edema, no periorbital erythema. ENT: Ear exam normal, Pharynx exam normal, not injected, no swelling, symmetrical, Uvula exam normal, midline, no edema, Mouth exam normal, mucous membranes moist. NECK: Neck exam included findings of normal range of motion, Trachea midline, no cervical adenopathy. RESPIRATORY CHEST: Respiratory exam included findings of no respiratory distress, Breath sounds clear, No wheezing, No rales, No rhonchi, Breath sounds not absent, Breath sounds not diminished. CARDIOVASCULAR: Cardiovascular exam included findings of heart rate regular rate and rhythm, Heart sounds normal, no murmurs, no rub. BACK: no costovertebral angle tenderness. UPPER EXTREMITY: Upper extremity exam included findings of inspection normal, Range of motion normal. NEURO: Randy coma scale 15, Neuro exam findings include patient oriented to person, place and time, no focal motor deficits. SKIN: Skin exam included findings of skin warm, and, diaphoretic, and normal in color. LYMPHATIC: Lymphatic exam included findings of cervical nodes normal, Submandibular normal. PSYCHIATRIC: Psychiatric exam included findings of patient oriented to person place and time, Normal affect. LAB INTERPRETATION (22:38 JPIP) INTERPRETATION: I reviewed the lab results, All labs normal except as noted below, CBC normal, Chemistry abnormal, Sodium decreased, Glucose elevated, Bicarbonate decreased, Magnesium elevated, Liver functions normal, Urinalysis abnormal, positive for glucose, Bedside glucose abnormal, elevated, VBG 7.420, CO241. EVENTS TRANSFER: Triage to Emergency Triage. (SatSep 25, 2016 20:10 SDIS) Emergency Triage to Emergency Room -02. (20:11 SDIS) Removed from Emergency Emergency Room -02. (23:50 SDIS) &a-1R&a+25V*p+0X*j6665Q*c202B*c15G*c2P*p-0X&a-25V&a+1R Name: Haim Boyle : 1990 M26 MedRec: [id number] AcctNum: [id number] Prepared: SatSep 25, 2016 23:56 by Interface Page 7 of 11 [facility] EMERGENCY RECORD O2SAT INTERPRETATION (22:26 JPIP) O2SAT: Continuous pulse oximetry, Oxygen saturation 98%, on room air, Oxygen saturation interpretation: Normal, No intervention required. DOCTOR NOTES (22:40 JPIP) RE-EVALUATION: Routine re-evaluation, after administration of IV fluids, The patient's condition has improved, states he is feeling better. TEXT: discussed findings and treatment plan with patient precautions given. PROBLEM LIST No recorded problems DIAGNOSIS (23:33 JPIP) FINAL: PRIMARY: viral syndrome, ADDITIONAL: diarrhea, nonketotic hyperglycemia. DISPOSITION PATIENT: Disposition Type: Discharge, Disposition: *Discharge Home, Condition: Good. (23:33 JPIP) Patient left the department. (23:50 SDIS) INSTRUCTION (23:33 JPIP) DISCHARGE: DIARRHEA VOMIT VIRAL 4YADULT, HYPERGLYCEMIA DIABETIC. FOLLOWUP: DO AVERY KRISTEL, [facility], [address] [place] [id number], [phone]. SPECIAL: follow your diabetic diet. Call your Primary Care Physician in the morning for a follow up appointment Follow up with Primary Care Physician within 72 hours Return to the Emergency Department for increased symptoms problems or concerns. PRESCRIPTION (23:32 JPIP) Levsin/SL: TABLET, SUBLINGUAL : 0.125 mg : SUBLINGUAL : Quantity: 1 Unit: tab(s) Route: SUBLINGUAL Schedule: every 4 hours prn Dispense: 30 May substitute. Refills: No Refills . NOTES: For abdominal pain, cramps or diarrhea No refills. RESULTS LABORATORY: Accuchek Collection DT: SatSep 25, 2016 20:49, *Accuchek 361 - H mg/dL, Range (70-110). (20:55 JPIP) CBC with Differential Collection DT: SatSep 25, 2016 20:44, White Blood Cell (WBC) Count 10.8 thou/uL, Range (4.8-10.8), Red Blood Cell (RBC) Count 5.28 mill/uL, Range (4.70-6.10), &a-1R&a+25V*p+0X*m0701J*c202B*c15G*c2P*p-0X&a-25V&a+1R Name: Haim Boyle Casa : 1990 M26 MedRec: [id number] AcctNum: [id number] Prepared: SatSep 25, 2016 23:56 by Interface Page 8 of 11 pMD [facility] EMERGENCY RECORD Hemoglobin 16.4 g/dL, Range (14.0-18.0), Hematocrit 46.2 %, Range (42.0-52.0), Mean Corpuscular Volume 87.5 fl, Range (80.0-94.0), *Mean Corpuscular Hemoglobin 31.1 - H pg, Range (27.0-31.0), Mean Corpuscular HGB CONC 35.6 g/dL, Range (32.0-36.0), *RBC Distribution Width 11.4 - L %, Range (11.5-14.5), Platelet Count 252 thou/uL, Range (130-400), Mean Platelet Volume 9.1 fL, Range (7.4-10.4), %Neutrophils 57.2 %, Range (42.0-75.0), %Lymphocytes 32.4 %, Range (21.0-51.0), %Monocytes 7.0 %, Range (0.0-10.0), %Eosinophils 1.9 %, Range (0.0-10.0), *%Basophils 1.6 - H %, Range (0.0-1.0), #Neutrophils 6.2 thou/uL, Range (1.40-6.50), *#Lymphocytes 3.5 - H thou/uL, Range (1.20-3.40), *#Monocytes 0.8 - H thou/uL, Range (0.11-0.59), #Eosinphils 0.2 thou/uL, Range (0.0-0.7), #Basophils 0.2 thou/uL, Range (0.0-0.2). (21:05 [facility]) Urinalysis w/ Rflx Microscopic Collection DT: SatSep 25, 2016 20:50, Color Yellow , Range (Yellow), Clarity Clear , Range (Clear), Specific [place], Urine 1.020 , Range (1.005-1.030), pH, Urine 5.5 , Range (5.0-9.0), Leukocyte Negative , Range (Negative), Nitrite Negative , Range (Negative), Protein, Urine (Dipstick) Negative mg/dL, Range (Neg-Trace), *Glucose, Urine (Dipstick) >=1000 - H mg/dL, Range (Negative), Ketone, Urine Negative mg/dL, Range (Negative), Urobilinogen 0.2 mg/dL, Range (0.2-1.0), Bilirubin Negative , Range (Negative), Blood, Urine Negative , Range (Negative). (21:05 [facility]) Blood Gas-Venous Collection DT: SatSep 25, 2016 20:44, *pH (venous) 7.420 - H , Range (7.34-7.37), *CO2 Tension (PvCO2) 41.0 - L mmHg, Range (44-46), *O2 Tension (PvO2) 73.0 - H mmHg, Range (38-42), Actual Bicarbonate (HCO3v) 26 mEq/L, Range (24-30), Base Excess 1.8 mEq/L, Range (-2 - +2), *O2 Saturation-measured venous 95.0 - H %, Range (60-80), Hemoglobin (Hb) 15.1 g/dL, Range (13.2-17.3). (21:16 [facility]) Magnesium Collection DT: SatSep 25, 2016 20:44, *Magnesium 2.7 - H mg/dL, Range (1.6-2.6). (21:16 JPIP) Comprehensive Metabolic Panel Collection DT: SatSep 25, 2016 20:44, *Sodium 132 - L mmol/L, Range (136-145), Potassium 4.1 mmol/L, Range (3.5-5.1), Chloride 98 mmol/L, Range (98-107), *Carbon Dioxide 10 - L mmol/L, Range (22-29), *Anion Gap 28 - H mmol/L, Range (10-20), BUN (Urea Nitrogen) 16 mg/dL, Range (8.9-20.6), Creatinine 1.05 mg/dL, Range (0.7-1.3), &a-1R&a+25V*p+0X*h1484G*c202B*c15G*c2P*p-0X&a-25V&a+1R Name: Haim Boyle : 1990 M26 MedRec: [id number] AcctNum: [id number] Prepared: SatSep 25, 2016 23:56 by Interface Page 9 of 11 p[facility] EMERGENCY RECORD Estimated GFR-MDRD 84 , Reference Range for Estimated GFR: Greater than 90, mL/min/1.73 m2 NOTE: The MDRD equation has not been validated for use, with the elderly (over 70 years of age), women, patients with, serious comorbid condition or persons with extremes of body size, muscle, mass, or nutritional status. , *Glucose 375 - H mg/dL, Range (70-105), Calcium 9.7 mg/dL, Range (7.8-10.44), Bilirubin, Total 0.5 mg/dL, Range (0.2-1.2), *Protein, Total 9.1 - H g/dL, Range (6.0-8.3), NOTE: Plasma values are generally 0.3 to 0.5 g/dL higher than serum values, due to the presence of fibrinogen. , Albumin 4.6 g/dL, Range (3.5-5.0), *Globulin 4.5 - H g/dL, Range (2.4-3.5), *Alb/Glob Ratio 1.0 - L g/dL, Range (1.2-2.2), Alkaline Phosphatase 79 U/L, Range (40-150), AST (SGOT) 23 U/L, Range (5-34), ALT (SGPT) 47 U/L, Range (0-55). (21:16 [facility]) MICROBIOLOGY: Influenza A&B Ag Screen: [id number] Collection DT: SatSep 25, 2016 22:14, See comment below , @ ER ROOM#: [id number] Source: Nasal swab Spec Desc: , Influenza A Antigen: NEGATIVE for the , presence of , INFLUENZA A Antigen , Influenza B Antigen: NEGATIVE for the , presence of , INFLUENZA B Antigen , The rapid Flu A&B test can distinguish between influenza A , Influenza A&B Ag Screen See comment below , and B viruses, but it does not differentiate influenza , Influenza A&B Ag Screen See comment below , subtypes. , Influenza A&B Ag Screen See comment below , Influenza A&B Ag Screen See comment below , Influenza A&B Ag Screen See comment below , Influenza A&B Ag Screen See comment below , characteristics of this device with human specimens infected , Influenza A&B Ag Screen See comment below , with the 2008 H1N1 influenza virus have not been , Influenza A&B Ag Screen See comment below , established. For example: this test cannot distinguish , Influenza A&B Ag Screen See comment below , influenza infections caused by novel H1N1 influenza A , Influenza A&B Ag Screen See comment below , viruses versus seasonal influenza A viruses. , Influenza A&B Ag Screen See comment below , , Influenza A&B Ag Screen See comment below , A negative result does &a-1R&a+25V*p+0X*t5123V*c202B*c15G*c2P*p-0X&a-25V&a+1R Name: Haim Boyle : 1990 M26 MedRec: [id number] AcctNum: [id number] Prepared: SatSep 25, 2016 23:56 by Interface Page 10 of 11 pMD [facility] EM[facility]GENCY RECORD not exclude influenza virus , Influenza A&B Ag Screen See comment below , infection; therefore, if more conclusive testing is desired, , Influenza A&B Ag Screen See comment below , follow up confirmatory testing is warranted., Influenza A&B Ag Screen See comment below . (22:43 JPIP) LABORATORY: [facility] DT: SatSep 25, 2016 22:07, *[facility] - H mg/dL, Range (70-110). (22:43 JPIP) [facility] DT: SatSep 25, 2016 23:40, *[facility] - H mg/dL, Range (70-110). (23:47 JPIP) Coleman: KEKE=DO Tellez Joseph SDIS=SERGIO Hadley, Madyson &a-1R&a+25V*p+0X*i2901N*c202B*c15G*c2P*p-0X&a-25V&a+1R Name: Haim Boyle : 1990 M26 MedRec: [id number] AcctNum: [id number] Prepared: SatSep 25, 2016 23:56 by Interface Page 11 of 11 pMD MTDD
== END 2016-09-25 23:49 | disposition home or self-care (01) ==
LOC: BURERS 20:03
DX: E11.65 Type 2 diabetes mellitus with hyperglycemia (principal); B34.9 Viral infection, unspecified; F17.210 Nicotine dependence, cigarettes, uncomplicated; Z79.84 Long term (current) use of oral hypoglycemic drugs
CPT/HCPCS: 36416; 80053; 81003; 82805; 83735; 85025; 94760; 96361; 96374

== ENCOUNTER 2016-10-01 16:35 | Outpatient (CLI) | payer OTHER ==
[2016-10-01 16:58] LABS: #Basophils 0.1 thou/uL (0.0-0.2); #Eosinphils 0.2 thou/uL (0.0-0.7); #Lymphocytes 2.3 thou/uL (1.20-3.40); #Monocytes 0.7 thou/uL (0.11-0.59); #Neutrophils 5.2 thou/uL (1.40-6.50); %Basophils 1.3 % (0.0-1.0); %Eosinophils 2.2 % (0.0-10.0); %Monocytes 7.8 % (0.0-10.0); Mean Platelet Volume 7.9 fL (7.4-10.4); Red Blood Cell (RBC) Count 5.55 mill/uL (4.70-6.10); White Blood Cell (WBC) Count 8.5 thou/uL (4.8-10.8)
[2016-10-01 17:05] LABS: ALT (SGPT) 65 U/L (0-55); AST (SGOT) 25 U/L (5-34); Alkaline Phosphatase 79 U/L (40-150); Anion Gap 16 mmol/L (10-20); BUN (Urea Nitrogen) 17 mg/dL (8.9-20.6); Bilirubin, Total 0.7 mg/dL (0.2-1.2); Calc. Creatinine Clearance 0 mL/min (70-130); Calcium 10.1 mg/dL (7.8-10.44); Carbon Dioxide 23 mmol/L (22-29); Chloride 100 mmol/L (98-107); Estimated GFR-MDRD 87; Globulin 3.3 g/dL (2.4-3.5); Protein, Total 8.3 g/dL (6.0-8.3)
[2016-10-01 17:26] LABS: Hemoglobin A1c 9.2 % (4.0-6.0)
[2016-10-02 18:27] LABS: Microalbumin Urine 5.1 mg/dL (0.5-50.0)
== END 2016-10-01 16:36 | disposition home or self-care (01) ==
LOC: HPCALD 16:35
PROVIDERS: ATTEND Family Medicine
DX: E11.65 Type 2 diabetes mellitus with hyperglycemia (principal)
CPT/HCPCS: 36415; 80053; 82043; 83036; 84443; 85025

== ENCOUNTER 2016-10-12 14:32 | Outpatient (CLI) | payer OTHER ==
[2016-10-13 20:57] LABS: Gamma GT (GGT) 37 U/L (12-64)
[2016-10-13 20:58] LABS: Iron 47 ug/dL (65-175)
== END 2016-10-12 14:33 | disposition home or self-care (01) ==
LOC: HPCALD 14:32
PROVIDERS: ATTEND Family Medicine
DX: R74.0 Nonspecific elevation of levels of transaminase and lactic acid dehydrogenase [LDH] (principal)
CPT/HCPCS: 36415; 80074; 82977; 83540; 83550

== ENCOUNTER 2017-11-05 01:02 | Emergency (ER) | payer OTHER, SELFPAY ==
[2017-11-05] MEDS ORDERED: Ondansetron ODT 4 MG TAB ONE (01:17)
[2017-11-05] MEDS ORDERED: Ondansetron HCl/PF 4 MG/2 ML Vial ONE (02:19)
[2017-11-05 02:40] LABS: Hemoglobin 17.2 g/dL (14.0-18.0); Mean Corpuscular HGB CONC 36.3 g/dL (32.0-36.0); Mean Corpuscular Volume 85.4 fl (80.0-94.0); Mean Platelet Volume 7.9 fL (7.4-10.4); Platelet Count 250 thou/uL (130-400); RBC Distribution Width 11.5 % (11.5-14.5); Red Blood Cell (RBC) Count 5.54 mill/uL (4.70-6.10); White Blood Cell (WBC) Count 25.5 thou/uL (4.8-10.8)
[2017-11-05 02:48] LABS: ALT (SGPT) 45 U/L (8-55); AST (SGOT) 26 U/L (5-34); Albumin 4.5 g/dL (3.5-5.0); Alkaline Phosphatase 71 U/L (40-150); Anion Gap 17 mmol/L (10-20); BUN (Urea Nitrogen) 16 mg/dL (8.9-20.6); Bilirubin, Total 0.7 mg/dL (0.2-1.2); Calc. Creatinine Clearance 0 mL/min (70-130); Calcium 9.9 mg/dL (7.8-10.44); Carbon Dioxide 22 mmol/L (22-29); Chloride 105 mmol/L (98-107); Estimated GFR-MDRD Greater than 90; Globulin 3.2 g/dL (2.4-3.5); Glucose 204 mg/dL (70-105); Lipase 11 U/L (8-78); Potassium 3.7 mmol/L (3.5-5.1); Protein, Total 7.7 g/dL (6.0-8.3); Sodium 140 mmol/L (136-145)
[2017-11-05 02:53] LABS: Band 3 % (5-11); Lymphocytes 6 % (21-51); MDiff Complete? YES; Monocytes 8 % (0-10); Neutrophil 81 % (42-75); PLT Morphology Comment Appears Adequate; RBC Morphology Normal; Reactive Lymphocytes 2 % (0-10)
== END 2017-11-05 03:24 | disposition home or self-care (01) ==
LOC: BURERS 01:02
DX: A08.4 Viral intestinal infection, unspecified (principal); E11.9 Type 2 diabetes mellitus without complications; F90.9 Attention-deficit hyperactivity disorder, unspecified type; F17.210 Nicotine dependence, cigarettes, uncomplicated; Z79.84 Long term (current) use of oral hypoglycemic drugs; Z79.899 Other long term (current) drug therapy
CPT/HCPCS: 80053; 83690; 85025; 96372; 96374; J2405; Q0162

== ENCOUNTER 2018-12-16 20:02 | Emergency (ER) | payer SELFPAY ==
[2018-12-16] MEDS ORDERED: Ketorolac Tromethamine 60 MG/2 ML VIAL ONE (20:26)
== END 2018-12-16 20:35 | disposition home or self-care (01) ==
LOC: BURERS 20:02
DX: K08.89 Other specified disorders of teeth and supporting structures (principal); E11.9 Type 2 diabetes mellitus without complications; I10 Essential (primary) hypertension; F43.10 Post-traumatic stress disorder, unspecified; F90.9 Attention-deficit hyperactivity disorder, unspecified type; F17.290 Nicotine dependence, other tobacco product, uncomplicated; Z79.84 Long term (current) use of oral hypoglycemic drugs; Z79.899 Other long term (current) drug therapy
CPT/HCPCS: 96372; J1885

== ENCOUNTER 2019-07-16 12:18 | Emergency (ER) | payer SELFPAY ==
--- NOTE | 2019-07-16 12:56 | RAD ---
EXAM: Chest PA and lateral: HISTORY: Cough and fever COMPARISON: none FINDINGS: Lung reynaga are clear. Vascular markings are normal. Heart and mediastinum appear unremarkable. Osseous structures are unremarkable. IMPRESSION: Unremarkable chest
== END 2019-07-16 13:37 | disposition home or self-care (01) ==
LOC: BURERS 12:18
DX: J11.00 Influenza due to unidentified influenza virus with unspecified type of pneumonia (principal); E11.9 Type 2 diabetes mellitus without complications; I10 Essential (primary) hypertension; F43.10 Post-traumatic stress disorder, unspecified; F90.9 Attention-deficit hyperactivity disorder, unspecified type; F17.290 Nicotine dependence, other tobacco product, uncomplicated; Z79.84 Long term (current) use of oral hypoglycemic drugs; Z79.899 Other long term (current) drug therapy
CPT/HCPCS: 36416; 71046; 87804; J7620

== ENCOUNTER 2021-06-08 19:48 | Emergency (ER) | payer SELFPAY ==
[2021-06-08] MEDS ORDERED: Acetaminophen 500 MG TAB ONE (20:02)
[2021-06-08] MEDS ORDERED: Lidocaine 1% PF 5 ML VIAL ONE (20:17)
== END 2021-06-08 21:36 | disposition home or self-care (01) ==
LOC: BURERS 19:48
DX: S67.190A Crushing injury of right index finger, initial encounter (principal); E11.9 Type 2 diabetes mellitus without complications; I10 Essential (primary) hypertension; F17.290 Nicotine dependence, other tobacco product, uncomplicated; Z79.84 Long term (current) use of oral hypoglycemic drugs; Z79.899 Other long term (current) drug therapy; W23.0XXA Caught, crushed, jammed, or pinched between moving objects, initial encounter
CPT/HCPCS: 11740